=== PATIENT | male | born 1980 | race Caucasian/White ===

== ENCOUNTER 2022-07-15 11:55 | Emergency (ER) | payer OTHER ==
[2022-07-15] MEDS ORDERED: predniSONE 20 MG TAB ONE (12:26)
== END 2022-07-15 12:37 | disposition home or self-care (01) ==
LOC: MADERS 11:55
DX: H10.13 Acute atopic conjunctivitis, bilateral (principal); H11.423 Conjunctival edema, bilateral; E78.2 Mixed hyperlipidemia; I10 Essential (primary) hypertension; X58.XXXA Exposure to other specified factors, initial encounter; Z79.899 Other long term (current) drug therapy
CPT/HCPCS: 99283; J7512

== ENCOUNTER 2023-01-12 11:27 | Emergency (ER) | payer OTHER ==
[2023-01-12] MEDS ORDERED: Acetaminophen 500 MG TAB ONE (13:02)
== END 2023-01-12 13:03 | disposition home or self-care (01) ==
LOC: MADERS 11:27
DX: S29.012A Strain of muscle and tendon of back wall of thorax, initial encounter (principal); E78.2 Mixed hyperlipidemia; I10 Essential (primary) hypertension; Z79.899 Other long term (current) drug therapy; X50.0XXA Overexertion from strenuous movement or load, initial encounter
CPT/HCPCS: 99283